=== PATIENT | female | born 1995 | race African-American/Black ===

== ENCOUNTER 2018-11-29 13:13 | Emergency (ER) | payer OTHER ==
[2018-11-29 13:30] VITALS: BMI 44.8
--- NOTE | 2018-11-29 14:31 | PDOC ---
History of Present Illness - General Chief Complaint: Pain Stated Complaint: ABDOMINAL PAIN Time Seen by Provider: 11/29/18 14:28 History Source: Patient Exam Limitations: No Limitations - History of Present Illness Initial Comments: 11/29/18 15:22 Pt is a 23y/o F with hx of depression and abd.surg hx presenting with 1 day of abdominal pain. She is (7wks) by LMP (10/07/2018) and test at [facility].The pain is an 8/10 constant, diffuse stabbing pain with no exacerbating or relieving factors. She has had x3 episodes of non-bloody emesis in the last 24 hrs. she denies any current vaginal bleeding or spotting.She is currently nauseous and last bowel movement was yesterday. she denies any trauma, fever,melena,dysuria or hematuria Past History - Past Medical History Allergies/Adverse Reactions: Allergies Allergy/AdvReac Type Severity Reaction Status Date / Time No Known Drug Allergies Allergy Verified 11/29/18 15:19 raisons Allergy Uncoded 11/29/18 13:30 Home Medications: Ambulatory Orders NK [No Known Home Medication] 11/29/18 COPD: No Psychiatric Problems: Yes (depression) - Suicide/Smoking/Psychosocial Hx Smoking History: Never smoked Review of Systems - Review of Systems Able to Perform ROS?: Yes Is the patient limited Pashto proficient: No Constitutional: No: Chills, Diaphoresis, Fever HEENTM: No: Eye Pain Respiratory: No: Cough Cardiac (ROS): No: Chest Pain ABD/GI: Yes: See HPI : No: Dysuria, Discharge, Hematuria Musculoskeletal: Yes: Back Pain, Muscle Pain Integumentary: No: Rash Neurological: No: Headache All Other Systems: Reviewed and Negative *Physical Exam - Vital Signs Last Vital Signs Temp Pulse Resp BP Pulse Ox 98 F 72 18 111/63 98 11/29/18 13:27 11/29/18 13:27 11/29/18 13:27 11/29/18 13:27 11/29/18 13:27 - Physical Exam General Appearance: Yes: Appropriately Dressed. No: Apparent Distress HEENT: positive: EOMI, Normal Voice, Symmetrical Respiratory/Chest: positive: Lungs Clear, Normal Breath Sounds. negative: Respiratory Distress Cardiovascular: positive: Regular Rhythm, Regular Rate, S1, S2. negative: JVD, Murmur Gastrointestinal/Abdominal: positive: Normal Bowel Sounds, Soft, Tenderness, Other (negative Doyle's and rovsing's sign). negative: Guarding, Mass Extremity: positive: Normal Inspection, Normal Range of Motion Integumentary: positive: Dry, Warm Neurologic: positive: Fully Oriented, Alert, Normal Mood/Affect ED Treatment Course - LABORATORY CBC & Chemistry Diagram: 11/29/18 15:45 11/29/18 15:45 Medical Decision Making - Medical Decision Making 11/29/18 15:31 DDX: Ectopic vs viral gastroenteritis vs Billiary colic vs PUD vs pancreatitis Labs Cbc, cmp,lipase,type and screen, quant B-Hcg, pt/inr, ptt Imaging: transvaginal U/S meds/Interventions: 1L bolus NS, 4mg IV Zofran, Pepcid (20mg) IVPB 11/29/18 15:35 11/29/18 17:00 Pt. reassessed. Nausea and pain have improved. Reduced tenderness on repeat abdominal exam. transvaginal U/S shows live IUP with approx.gestational age of 7wks 1 day. Ovaries unremarkable 11/29/18 17:02 11/29/18 17:34 Lipase, AST, ALT within reference range. Beta- hcg appropriate for gestational age. Pt. tolerating PO. 11/29/18 19:13 UA unremarkable. Pt. ambulating with no problems, tolerating PO.no further complaints of abdominal pain. will discharge with pcp follow up. *DC/Admit/Observation/Transfer Diagnosis at time of Disposition: Nausea & vomiting Qualifiers: Vomiting type: unspecified Vomiting Intractability: non-intractable Qualified Code(s): R11.2 - Nausea with vomiting, unspecified Abdominal pain Qualifiers: Abdominal location: generalized Qualified Code(s): R10.84 - Generalized abdominal pain - Discharge Dispostion Disposition: HOME Condition at time of disposition: Stable Decision to Admit order: No - Referrals Referrals: Ankush Carrasquillo MD [Primary Care Provider] - - Patient Instructions Printed Discharge Instructions: DI for Abdominal Pain -- Early Additional Instructions: Please follow up with primary care doctor and industrial laborer in 1-3 days. Return to the ER if you have worsening pain, nausea, vomiting, fever or chills. - Post Discharge Activity
[2018-11-29] MEDS ORDERED: FAMOTIDINE 20 MG/50 ML IVPB 20 MG/50 ML MG IVPB ONE ×2 (15:16→15:29)
[2018-11-29] MEDS ORDERED: ONDANSETRON 4 MG/2 ML VIAL IVPUSH ONE (15:17)
[2018-11-29] MEDS ORDERED: SODIUM CHLORIDE 0.9% 1000 ML INFUS.BAG IV ONE (15:18)
[2018-11-29] MEDS ORDERED: ONDANSETRON 4 MG/2 ML VIAL ONE (15:29)
--- NOTE | 2018-11-29 16:02 | PDOC ---
Attending Attestation - Resident Resident Name: Augustin Castillo - ED Attending Attestation I have performed the following: I have examined & evaluated the patient, The case was reviewed & discussed with the resident, I agree w/resident's findings & plan, Exceptions are as noted - HPI HPI: 11/29/18 15:49 Ms. Gutierrez is a 23 y/o F h/o depression who presents to the ER with a complaint of vomiting and abdominal pain Pt is LMP (10/07/2018) She reports abdominal pain which is rated 8/10, is constant, diffuse stabbing pain with no exacerbating or relieving factors. She has had x3 episodes of non-bloody emesis in the last 24 hrs. No vaginal bleeding - Physicial Exam PE: 11/29/18 16:02 GENERAL: The patient is in no acute distress. ENT: Ears normal, nares patent, oropharynx clear without exudates. Moist mucous membranes. NECK: Normal range of motion, supple LUNGS: Breath sounds equal, clear to auscultation bilaterally. No wheezes, and no crackles. HEART:Regular rate and rhythm, normal S1 and S2 without murmur, rub or gallop. ABDOMEN: Soft, nontender, normoactive bowel sounds. EXTREMITIES: Normal range of motion, no edema. NEUROLOGICAL: Cranial nerves II through XII grossly intact. Normal speech. No focal neurological deficits. SKIN: Warm, Dry, normal turgor, no rashes or lesions noted. - Medical Decision Making 11/29/18 16:03 23 yo F presenting with nausea and vomiting DD: Hyperemesis gravidarium, biliary colic, Will do: Labs US 11/29/18 18:02 Laboratory Tests 11/29/18 11/29/18 15:45 15:45 WBC 5.9 Hgb 13.3 Hct 40.7 Plt Count 317 BUN 11.4 Creatinine 0.7 Beta HCG, Quant 89946.7 11/29/18 18:03 U/S: IUP, 7 weeks 1 day FHR 152 bpm Ovaries unremarkable, minimal fluid in the left adnexa 11/29/18 18:04 Laboratory Tests 11/29/18 15:45 Blood Type O POSITIVE 11/29/18 18:04 UA D/c Home
[2018-11-29 16:05] LABS: INR 1.04 (0.83-1.09); PROTHROMBIN TIME (PATIENT) 12.3 SEC (9.7-13.0)
[2018-11-29 16:08] LABS: ACTIVATED PTT 36.5 SECONDS (25.2-36.5)
[2018-11-29 16:31] LABS: BASO % 0.7 % (0-2.0); EOS % 0.9 % (0-4.5); HEMATOCRIT 40.7 % (32.4-45.2); HEMOGLOBIN 13.3 GM/dL (10.7-15.3); LYMPH % 39.5 % (8-40); MCH 29.6 pg (25.7-33.7); MCHC 32.7 g/dl (32.0-36.0); MEAN CELL VOLUME 90.8 fl (80-96); MEAN PLT VOLUME 8.3 fl (7.5-11.1); MONO % 8.2 % (3.8-10.2); NEUT % 50.7 % (42.8-82.8); PLATELET COUNT 317 K/MM3 (134-434); RBC 4.48 M/mm3 (3.60-5.2); RDW 14.6 % (11.6-15.6); WHITE BLOOD COUNT 5.9 K/mm3 (4.0-10.0)
[2018-11-29 16:43] LABS: ALBUMIN 3.6 g/dl (3.4-5.0); BILIRUBIN,TOTAL 0.5 mg/dL (0.2-1); BLOOD UREA NITROGEN 11.4 mg/dL (7-18); CALCIUM 9.4 mg/dL (8.5-10.1); CREATININE 0.7 mg/dL (0.55-1.3); POTASSIUM 4.8 mmol/L (3.5-5.1); TOT PROT 6.8 g/dl (6.4-8.2)
[2018-11-29 18:52] LABS: URINE APPEARANCE CLEAR; URINE BILIRUBIN NEGATIVE (NEGATIVE); URINE COLOR YELLOW; URINE GLUCOSE (UA) NEGATIVE (NEGATIVE); URINE KETONE 1+ (NEGATIVE); URINE LEUK ESTERASE NEGATIVE (NEGATIVE); URINE NITRITE NEGATIVE (NEGATIVE); URINE PROTEIN NEGATIVE (NEGATIVE)
[2018-11-29 19:24] VITALS: BP 122/60; PULSE 68; TEMP 99
== END 2018-11-29 19:36 | disposition home or self-care (01) ==
LOC: JER 13:13
PROC: 3E033GC Introduction of Other Therapeutic Substance into Peripheral Vein, Percutaneous Approach (ICD-10-PCS; principal; 2018-11-29)
PROC: 3E033GC Introduction of Other Therapeutic Substance into Peripheral Vein, Percutaneous Approach (ICD-10-PCS; 2018-11-29)
PROC: 3E0337Z Introduction of Electrolytic and Water Balance Substance into Peripheral Vein, Percutaneous Approach (ICD-10-PCS; 2018-11-29)
DX: O26.891 Other specified pregnancy related conditions, first trimester (principal); R10.9 Unspecified abdominal pain; R11.2 Nausea with vomiting, unspecified; Z3A.01 Less than 8 weeks gestation of pregnancy
CPT/HCPCS: 36415; 76830-TC; 80053; 81003; 83690; 84702; 85025; 85610; 85730; 86850; 86870; 86900; 86901; 86902; 96365; 96375; 99283-25; J7030